=== PATIENT | male | born 1985 | race American Indian/Alaskan Native ===

== ENCOUNTER 2020-04-10 13:41 | Emergency (ER) | payer OTHER ==
[2020-04-10] MEDS ORDERED: Sodium Chloride 0.9% 1,000 ML IV ONE (14:29)
--- NOTE | 2020-04-10 14:44 | EDM.PDOC ---
ED HPI GENERAL MEDICAL PROBLEM - General Chief Complaint: Head Injury Stated Complaint: "Head hurts" Time Seen by Provider: 04/10/20 13:51 Source of Information: Reports: Patient History Limitations: Reports: No Limitations - History of Present Illness INITIAL COMMENTS - FREE TEXT/NARRATIVE: This patient is a 34 year old male that presents to the ER. Patient reports that about 3 days ago he started having lightheaded with changing positions or walking. He reports that he feels a little unsteady with his gait. Patient reports that he also has had a top of the head and frontal bilateral headache that is throbbing. He reports he has also had some mild congestion and runny nose in the mornings. Onset Date: 04/10/20 Duration: Day(s): (3) Location: Reports: Head Severity: Mild Improves with: Reports: Rest Worsens with: Reports: Movement Associated Symptoms: Reports: Headaches. Denies: Confusion, Chest Pain, Cough, cough w sputum, Diaphoresis, Fever/Chills, Loss of Appetite, Malaise, Nausea/Vomiting, Rash, Seizure, Shortness of Breath, Syncope, Weakness - Related Data Allergies Allergy/AdvReac Type Severity Reaction Status Date / Time No Known Allergies Allergy Verified 01/07/16 14:13 Home Meds: Home Meds . [No Known Home Meds] 12/17/18 [History] Past Medical History - Past Health History Medical/Surgical History: Denies Medical/Surgical History Cardiovascular History: Reports: Hypertension Musculoskeletal History: Reports: Other (See Below) Other Musculoskeletal History: neuropathy Neurological History: Reports: Neuropathy, Diabetic Psychiatric History: Reports: Anxiety, Depression Endocrine/Metabolic History: Reports: Diabetes, Type II Social & Family History - Family History Family Medical History: Noncontributory - Caffeine Use Caffeine Use: Reports: Coffee, Energy Drinks, Soda - Living Situation & Occupation Living situation: Reports: Occupation: Employed ED ROS GENERAL - Review of Systems Review Of Systems: See Below Constitutional: Reports: No Symptoms HEENT: Reports: Rhinitis, Sinus Problem. Denies: Vision Change Respiratory: Reports: No Symptoms Cardiovascular: Reports: Lightheadedness (with standing). Denies: Chest Pain, Edema, Syncope Endocrine: Reports: No Symptoms GI/Abdominal: Reports: No Symptoms. Denies: Abdominal Pain, Nausea, Vomiting : Reports: No Symptoms Musculoskeletal: Reports: No Symptoms Skin: Reports: No Symptoms Neurological: Reports: Dizziness, Headache. Denies: Confusion, Numbness, Seizure, Syncope, Tingling, Tremors, Trouble Speaking, Weakness, Change in Speech Psychiatric: Reports: No Symptoms Hematologic/Lymphatic: Reports: No Symptoms Immunologic: Reports: No Symptoms ED EXAM, HEAD INJURY - Physical Exam Exam: See Below Exam Limited By: No Limitations General Appearance: Alert, WD/WN, No Apparent Distress Head: Atraumatic, Normocephalic Eyes: Bilateral Eye: EOMI, Normal Inspection, PERRL Ears: Normal External Exam, Normal Canal, Hearing Grossly Normal, Normal TMs Nose: Normal Inspection, Normal Mucousa, No Blood Throat/Mouth: Normal Inspection, Normal Lips, Normal Teeth, Normal Gums, Normal Oropharynx, Normal Voice, No Airway Compromise Neck: Non-Tender, Full Range of Motion, Normal Alignment, Normal Inspection Respiratory: No Respiratory Distress, Lungs Clear, Normal Breath Sounds, No Accessory Muscle Use Cardiovascular: Normal Peripheral Pulses, Regular Rate, Rhythm, No Edema, No Gallop, No JVD, No Murmur, No Rub GI/Abdominal Exam: Soft, Non-Tender Back Exam: Normal Inspection, Full Range of Motion Extremities: Normal Inspection, Normal Range of Motion, Non-Tender, No Pedal Edema, Normal Capillary Refill 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-XII nml As Tested, No Motor/Sensory Deficits, Alert, Normal Mood/Affect, Oriented x 3 Skin: Normal Color, Warm/Dry - [place] Coma Score Best Eye Response (Miky): (4) Open Spontaneously Best Verbal Response (Miky): (5) Oriented Best Motor Response (Miky): (6) Obeys Commands Course - Vital Signs Last Recorded V/S: Last Vital Signs Temp 98.7 F 04/10/20 15:14 Pulse 73 04/10/20 15:14 Resp 20 04/10/20 15:14 BP 135/94 H 04/10/20 15:14 Pulse Ox 98 04/10/20 15:14 - Orders/Labs/Meds Orders: Active Orders 24 hr Category Date Time Status Head wo Cont [CT] Stat Exams 04/10/20 14:28 Taken Labs: Laboratory Tests 04/10/20 04/10/20 04/10/20 Range/Units 14:28 14:28 14:31 WBC 11.7 H (5.0-10.0) 10^3/uL RBC 5.04 (4.50-6.00) 10^6/uL Hgb 15.0 (14.0-18.0) g/dL Hct 43.4 (40.0-54.0) % MCV 86.1 (82.0-94.0) fL MCH 29.8 (27.0-32.0) pg MCHC 34.6 (33.0-38.0) g/dL RDW Coeff of Amado 13.8 (11.0-15.0) % Plt Count 233 (150-400) 10^3/uL Neut % (Auto) 69.0 (35-85) % Lymph % (Auto) 23.3 (10-55) % [place] % (Auto) 6.1 (0-16) % Eos % (Auto) 1.3 (0-5) % Baso % (Auto) 0.3 (0-3) % Neut # (Auto) 8.07 H (1.80-7.00) 10^3/uL Lymph # (Auto) 2.72 (1.00-4.80) 10^3/uL [place] # (Auto) 0.71 (0.00-0.80) 10^3/uL Eos # (Auto) 0.15 (0.00-0.45) 10^3/uL Baso # (Auto) 0.04 10^3/uL Sodium 137 (136-145) mEq/L Potassium 4.3 (3.5-5.0) mEq/L Chloride 101 (98-106) mEq/L Carbon Dioxide 26 (21-32) mmol/L BUN 16 (7-18) mg/dL Creatinine 1.1 (0.7-1.3) mg/dL Est Cr Clr Drug Dosing TNP Estimated GFR (MDRD) > 60 (>=60) mL/min Glucose 228 H (75-99) mg/dL Calcium 8.8 (8.4-10.1) mg/dL Total Bilirubin 0.4 (0.0-1.0) mg/dL AST 18 (15-37) U/L ALT 30 (12-78) U/L Alkaline Phosphatase 125 H (46-116) U/L Total Protein 7.9 (6.4-8.2) g/dL Albumin 3.7 (3.4-5.0) g/dL COVID-19 (ANGELA) Negative (NEGATIVE) Meds: Medications Discontinued Medications Generic Name Dose Route Start Last Admin Trade Name Rama PRN Reason Stop Dose Admin Diphenhydramine HCl 12.5 mg 04/10/20 15:02 Benadryl IVPUSH 04/10/20 15:03 ONETIME ONE Sodium Chloride 1,000 mls @ 1,000 mls/hr 04/10/20 14:29 04/10/20 14:56 Normal Saline IV 04/10/20 15:28 1,000 mls/hr .BOLUS ONE Administration Ketorolac Tromethamine 30 mg 04/10/20 15:02 Toradol IVPUSH 04/10/20 15:03 ONETIME ONE Ondansetron HCl 4 mg 04/10/20 15:02 Zofran IVPUSH 04/10/20 15:03 NOW STA - Radiology Interpretation Free Text/Narrative:: Head CT: No acute findings CT Results Date: 04/10/20 CT Results Time: 15:46 Departure - Departure Time of Disposition: 15:49 Disposition: Home, Self-Care 01 Condition: Good Clinical Impression: Headache Qualifiers: Headache type: unspecified Headache chronicity pattern: acute headache Intractability: not intractable Qualified Code(s): R51 - Headache - Discharge Information *PRESCRIPTION DRUG MONITORING PROGRAM REVIEWED*: Not Applicable *COPY OF PRESCRIPTION DRUG MONITORING REPORT IN PATIENT BRIT: Not Applicable Instructions: Migraine Headache, [id number] Forms: ED Department Discharge Additional Instructions: Followup with your primary care provider Return to the ER for worsening of condition or any emergent concerns Increase fluids Go home and rest Sepsis Event Note (ED) - Focused Exam Vital Signs: Vital Signs Temp Pulse Resp BP Pulse Ox 04/10/20 15:14 98.7 F 73 20 135/94 H 98 - My Orders Last 24 Hours: My Active Orders 04/10/20 14:28 Head wo Cont [CT] Stat - Assessment/Plan Last 24 Hours: My Active Orders 04/10/20 14:28 Head wo Cont [CT] Stat Plan: PLEASE SEE RN NOTE FOR PFSH.
[2020-04-10] MEDS ORDERED: diphenhydrAMINE 50 MG/ML SDV IVPUSH ONE (15:02)
[2020-04-10] MEDS ORDERED: Ondansetron 4 MG/2 ML SDV IVPUSH STA (15:02)
[2020-04-10] MEDS ORDERED: Ketorolac 30 MG/ML SDV IVPUSH ONE (15:02)
[2020-04-10 15:06] LABS: CHLORIDE,CL 101 mEq/L (98-106); SODIUM,NA 137 mEq/L (136-145)
[2020-04-10 15:16] VITALS: BP 135/94; PULSE 73
== END 2020-04-10 16:10 | disposition home or self-care (01) ==
LOC: CC.ED 13:41
DX: R51 Headache (principal); R42 Dizziness and giddiness; I10 Essential (primary) hypertension; E11.40 Type 2 diabetes mellitus with diabetic neuropathy, unspecified; Z20.828 Contact with and (suspected) exposure to other viral communicable diseases
CPT/HCPCS: 36415; 70450; 80053; 85025; 87635; 96361; 96374; 96375; 99284; J1200; J1885; J2405; J7030; U0002